=== PATIENT | male | born 1950 | race African-American/Black ===

== ENCOUNTER 2017-05-18 13:36 | Inpatient (IN) | payer OTHER, MEDICARE ==
[2017-05-18] VITALS (7 sets, daily range): BP systolic 63–127; BP diastolic 52–87; PULSE 83–110; RESP 16–20; TEMP 97.7–99.2; O2SAT 96–100
[~2017-05-18] VITALS: Ht 172.7 cm; Wt 82.3 kg
[2017-05-18] MEDS ORDERED: COUM4TAB PO (14:47)
[2017-05-18] MEDS ORDERED: UNKNOWN MEDS (14:47)
[2017-05-18 15:05] LABS: AUTOMATED NEUTROPHIL # 14.5 TH/MM3 (1.8-7.7); BASOPHIL # 0.3 TH/MM3 (0-0.2); EOSINOPHIL % 0.2 % (0.0-4.0); HEMATOCRIT 44.8 % (39.0-51.0); HEMOGLOBIN 15.1 GM/DL (13.0-17.0); LYMPH % 3.7 % (9.0-44.0); LYMPHOCYTE # 0.6 TH/MM3 (1.0-4.8); MEAN CELL VOLUME 79.1 FL (80.0-100.0); MEAN CORPUSCULAR HEMOGLOBIN 26.6 PG (27.0-34.0); MEAN CORPUSCULAR HGB CONC 33.6 % (32.0-36.0); MEAN PLATELET VOLUME 9.6 FL (7.0-11.0); MONO % 9.1 % (0.0-8.0); MONOCYTE # 1.6 TH/MM3 (0-0.9); PLATELET COUNT 239 TH/MM3 (150-450); RED BLOOD COUNT 5.67 MIL/MM3 (4.50-5.90); RED CELL DISTRIBUTION WIDTH 14.4 % (11.6-17.2)
[2017-05-18] MEDS ORDERED: SODIUM CHLOR 0.9% 1000 ML INJ 1,000 ML IV ONE (15:15)
[2017-05-18 15:17] LABS: CHLORIDE 97 MEQ/L (98-107); SODIUM (NA) 132 MEQ/L (136-145)
--- NOTE | 2017-05-18 15:21 | PD ---
HPI Chief Complaint: Dizziness Time Seen by Provider: 14:45 Travel History International Travel<30 days: No Contact w/Intl Traveler<30days: No Traveled to known affect area: No History of Present Illness HPI PATIENT WHILE AT [employer], GOT DIZZY SPELL AND FELT LIKE HE WAS GOING TO FALL/PASS OUT, WAS HELD BY STORE EMPLOYEE...SYMPTOMS FULLY RESOLVED ONCE HE SAT DOWN, HOWEVER RECURRED AGAIN WHEN HE GOT UP AND OUT OF CAR AGAIN. PER PATIENT HE HAS HAD NO APPETITE AND HASN'T EATEN OVER THE PAST 3 DAYS, NOT BECAUSE HE'S IN PAIN/ OR N/V/D/ABDPAIN/CP BUT JUST BECAUSE OF NO APPETITE PCP FROM [facility] PMHX: DM, HTN, HYPERCHOL, CVA X3 PRIOR, DEMENTIA, SEIZURE, THYROID AND PROSTATE CA, AORTIC VALVE REPLACEMENT ON COUMADIN PFSH Past Medical History Cancer: Yes (THYROID, PROSTATE) High Cholesterol: Yes Cerebrovascular Accident: Yes Dementia: Yes Diabetes: Yes Patient Takes Glucophage: No Hypertension: Yes Seizures: Yes Past Surgical History Cardiac Surgery: Yes (AORTIC VALVE REPLACEMENT) Social History Alcohol Use: No Tobacco Use: No Substance Use: No Allergies-Medications (Allergen,Severity, Reaction): Coded Allergies: codeine (Verified Allergy, Intermediate, RASH, 05/18/17) ketorolac (Verified Allergy, Intermediate, HAND SWELLING, 05/18/17) adhesive tape (Verified Allergy, Unknown, RASH, 05/18/17) latex (Verified Allergy, Unknown, RASH, 05/18/17) Reported Meds & Prescriptions Reported Meds & Active Scripts Active Reported Coumadin (Warfarin) 10 Mg Tab 8 Mg PO DAILY Aricept (Donepezil HCl) 10 Mg Tablet 10 Mg PO DAILY Namenda Xr (Memantine) 28 Mg Caper 28 Mg PO DAILY Gabapentin 100 Mg Cap 100 Mg PO BID Levetiracetam 500 Mg Tab 500 Mg PO QHS Levetiracetam 250 Mg Tab 250 Mg PO Q AM Lansoprazole 30 Mg Capdr 30 Mg PO DAILY [Benzopril] 10 Mg PO DAILY Unithroid (Levothyroxine Sodium) 125 Mcg Tab 125 Mcg PO DAILY Simvastatin 20 Mg Tab 20 Mg PO QHS Amlodipine (Amlodipine Besylate) 5 Mg Tab 5 Mg PO DAILY Flexeril (Cyclobenzaprine HCl) 10 Mg Tab 10 Mg PO TID Metformin (Metformin HCl) 1,000 Mg Tab 1,000 Mg PO BID With a meal Allopurinol 300 Mg Tab 300 Mg PO DAILY [Oxybutin] 5 Mg PO Q8HR [Unknown Meds] Review of Systems Except as stated in HPI: all other systems reviewed are Neg General / Constitutional: No: Fever Eyes: No: Visual changes HENT: Positive: Lightheadedness Cardiovascular: Positive: Syncope (NEARLY PASSED OUT WHILE STANDING UP) Respiratory: No: Shortness of Breath Gastrointestinal: No: Abdominal Pain Genitourinary: No: Dysuria Musculoskeletal: No: Pain Skin: No Rash Neurologic: No: Weakness Psychiatric: No: Depression Endocrine: No: Polydipsia Hematologic/Lymphatic: No: Easy Bruising Physical Exam Narrative GENERAL: SKIN: Warm and dry. HEAD: Atraumatic. Normocephalic. EYES: Pupils equal and round. No scleral icterus. No injection or drainage. ENT: No nasal bleeding or discharge. Mucous membranes pink and moist. NECK: Trachea midline. No JVD. CARDIOVASCULAR: Regular rhythm, TACHYCARDIC RATE RESPIRATORY: No accessory muscle use. Clear to auscultation. Breath sounds equal bilaterally. GASTROINTESTINAL: Abdomen soft, non-tender, nondistended. MUSCULOSKELETAL: Extremities without clubbing, cyanosis, or edema. No obvious deformities. NEUROLOGICAL: Awake and alert. No obvious cranial nerve deficits. Motor grossly within normal limits. Five out of 5 muscle strength in the arms and legs. Normal speech. PSYCHIATRIC: Appropriate mood and affect; insight and judgment normal. Data Data Last Documented VS Vital Signs Date Time Temp Pulse Resp B/P (MAP) Pulse Ox O2 Delivery O2 Flow Rate FiO2 05/18/17 16:37 98 20 115/77 (90) 98 05/18/17 13:50 99.2 Orders Orders Electrocardiogram (05/18/17 14:45) B-Type Natriuretic Peptide (05/18/17 14:45) Ckmb (Isoenzyme) Profile (05/18/17 14:45) Complete Blood Count With Diff (05/18/17 14:45) Comprehensive Metabolic Panel (05/18/17 14:45) Prothrombin Time / Inr (Pt) (05/18/17 14:45) Act Partial Throm Time (Ptt) (05/18/17 14:45) Troponin I (05/18/17 14:45) Chest, Single Ap (05/18/17 14:45) Ecg Monitoring (05/18/17 14:45) Bilateral Bp Monitoring (05/18/17 14:45) Iv Access Insert/Monitor (05/18/17 14:45) Oximetry (05/18/17 14:45) Oxygen Administration (05/18/17 14:45) Ct Brain W/O Iv Contrast(Rout) (05/18/17 14:45) Sodium Chlor 0.9% 1000 Ml Inj (Ns 1000 M (05/18/17 15:15) Orthostatic Vital Signs (05/18/17 15:09) CKMB (05/18/17 15:00) CKMB% (05/18/17 15:00) Admit To Inpatient (05/18/17 ) Vital Signs (Adult) Q4H (05/18/17 16:53) Activity Oob With Assistance (05/18/17 16:53) Intake + Output JARAD.QSHIFT (05/18/17 16:53) Diet Heart Healthy (05/18/17 Dinner) Sodium Chlor 0.9% 1000 Ml Inj (Ns 1000 M (05/18/17 16:53) Sodium Chloride 0.9% Flush (Ns Flush) (05/18/17 17:00) Sodium Chloride 0.9% Flush (Ns Flush) (05/18/17 21:00) Acetaminophen (Tylenol) (05/18/17 17:00) Basic Metabolic Panel (Bmp) (05/19/17 06:00) Complete Blood Count With Diff (05/19/17 06:00) Prothrombin Time / Inr (Pt) (05/19/17 06:00) Pt Request For Service (05/18/17 16:53) Naloxone Inj (Narcan Inj) (05/18/17 17:00) Docusate Sodium-Senna (Aviva-Colace) (05/18/17 21:00) Magnesium Hydroxide Liq (Milk Of Magnesi (05/18/17 17:00) Sennosides (Senokot) (05/18/17 17:00) Bisacodyl Supp (Dulcolax Supp) (05/18/17 17:00) Lactulose Liq (Lactulose Liq) (05/18/17 17:00) Inpatient Certification (05/18/17 ) Admit Order (Ed Use Only) (05/18/17 16:57) Labs Laboratory Tests Test 05/18/17 15:00 White Blood Count 17.0 TH/MM3 Red Blood Count 5.67 MIL/MM3 Hemoglobin 15.1 GM/DL Hematocrit 44.8 % Mean Corpuscular Volume 79.1 FL Mean Corpuscular Hemoglobin 26.6 PG Mean Corpuscular Hemoglobin Concent 33.6 % Red Cell Distribution Width 14.4 % Platelet Count 239 TH/MM3 Mean Platelet Volume 9.6 FL Neutrophils (%) (Auto) 85.0 % Lymphocytes (%) (Auto) 3.7 % Monocytes (%) (Auto) 9.1 % Eosinophils (%) (Auto) 0.2 % Basophils (%) (Auto) 2.0 % Neutrophils # (Auto) 14.5 TH/MM3 Lymphocytes # (Auto) 0.6 TH/MM3 Monocytes # (Auto) 1.6 TH/MM3 Eosinophils # (Auto) 0.0 TH/MM3 Basophils # (Auto) 0.3 TH/MM3 CBC Comment DIFF FINAL Differential Comment Prothrombin Time 73.3 SEC Prothromb Time International Ratio 6.1 RATIO Activated Partial Thromboplast Time 61.5 SEC Blood Urea Nitrogen 16 MG/DL Creatinine 1.90 MG/DL Random Glucose 131 MG/DL Total Protein 7.6 GM/DL Albumin 3.3 GM/DL Calcium Level 8.3 MG/DL Alkaline Phosphatase 86 U/L Aspartate Amino Transf (AST/SGOT) 17 U/L Alanine Aminotransferase (ALT/SGPT) 21 U/L Total Bilirubin 0.8 MG/DL Sodium Level 132 MEQ/L Potassium Level 4.6 MEQ/L Chloride Level 97 MEQ/L Carbon Dioxide Level 24.7 MEQ/L Anion Gap 10 MEQ/L Estimat Glomerular Filtration Rate 43 ML/MIN Total Creatine Kinase 184 U/L Creatine Kinase MB 0.5 NG/ML Troponin I LESS THAN 0.02 NG/ML B-Type Natriuretic Peptide 35 PG/ML MDM Medical Decision Making Medical Screen Exam Complete: Yes Emergency Medical Condition: Yes Medical Record Reviewed: Yes Interpretation(s) SINUS TACH 105, P MITRALE, NORMAL INTERVALS, NO STEMI Differential Diagnosis ICH V ORTHOSTATIC HYPOTENSION V ANEMIA V DEHYDRATION V ATYPICAL STEMI V NONSTEMI Critical Care Narrative CRITICAL CARE NOTE: With evaluation of the patient, labs, EKG, receipt of radiologic studies, administration of medications, reevaluation the patient and discussion of the patient with the admitting physicians, the total critical care time was [30] minutes. Time to perform other separately billable procedures was not included in the critical care time. Diagnosis Primary Impression: NEAR SYNCOPE Additional Impressions: COUMADIN HYPERCOAGULOPATHY LEUKOCYTOSIS NOS Orthostatic hypotension Scripts Ugxcvuze-Ojwdxafogzficil-Yhkzqrtnc Liq (Magic Mouthwash Adult Liq) 120 Ml Susp 5 ML SWISH-SWAL QID for mouth pain for 30 Days, ML Prov: Kamla Del Valle MD 05/20/17 Js Eden MD May 18, 2017 15:21
[2017-05-18 15:22] LABS: ALBUMIN 3.3 GM/DL (3.4-5.0); BICARBONATE 24.7 MEQ/L (21.0-32.0); BLOOD UREA NITROGEN 16 MG/DL (7-18); CALCIUM 8.3 MG/DL (8.5-10.1); GLUCOSE,RANDOM 131 MG/DL (74-106)
[2017-05-18 15:25] LABS: ALT (GPT) 21 U/L (12-78); AST (GOT) 17 U/L (15-37); GLOMERULAR FILTRATION RATE 43 ML/MIN (>89)
[2017-05-18 15:27] LABS: TOTAL BILIRUBIN ADULT 0.8 MG/DL (0.2-1.0); TOTAL PROTEIN 7.6 GM/DL (6.4-8.2)
[2017-05-18 15:28] LABS: ALKALINE PHOSPHATASE 86 U/L (45-117)
[2017-05-18 15:30] LABS: TROPONIN I LESS THAN 0.02 NG/ML (0.02-0.05)
--- NOTE | 2017-05-18 15:35 | RADRPT ---
EXAM DATE/TIME: 05/18/2017 15:21 [facility] COMPARISON: No previous studies available for comparison. INDICATIONS : Dizziness. RADIATION DOSE: 65.81 CTDIvol (mGy) MEDICAL HISTORY : Cerebrovascular disease. Cardiovascular disease Seizures.Dementia. Diabetes. Hypertension. Thyroid cancer. Prostate cancer. SURGICAL HISTORY : Aortic valve replacement. ENCOUNTER: Initial ACUITY: 1 day PAIN SCALE: 0/10 LOCATION: cranial TECHNIQUE: Multiple contiguous axial images were obtained of the head. Using automated exposure control and adj ustment of the mA and/or kV according to patient size, radiation dose was kept as low as reasonably a chievable to obtain optimal diagnostic quality images. DICOM format image data is available electro nically for review and comparison. FINDINGS: CEREBRUM: The ventricles are normal for age. No evidence of midline shift, mass lesion, hemorrhage or acute in farction. No extra-axial fluid collections are seen. Encephalomalacia is noted within the left front oparietal region and left basal ganglia. Focal ex vacuo dilatation of the frontal horn of the left la teral ventricle is noted. POSTERIOR FOSSA: The cerebellum and brainstem are intact. The 4th ventricle is midline. The cerebellopontine angle i s unremarkable. EXTRACRANIAL: The visualized portion of the orbits is intact. SKULL: The calvaria is intact. No evidence of skull fracture. CONCLUSION: 1. Left frontoparietal and left basal ganglia encephalomalacia with focal ex vacuo dilatation of the frontal horn of the left lateral ventricle. 2. No acute infarct, acute hemorrhage, mass effect or extra-axial fluid collections. Haim Kumari MD on May 18, 2017 at 15:30 Board Certified Radiologist. This report was verified electronically.
[2017-05-18 15:49] LABS: PROTHROMBIN TIME - PATIENT 73.3 SEC (9.8-11.6)
[2017-05-18 15:52] LABS: INTERNATIONAL NORMALIZED RATIO 6.1 RATIO
--- NOTE | 2017-05-18 15:58 | RADRPT ---
EXAM DATE/TIME: 05/18/2017 15:31 [facility] COMPARISON: No previous studies available for comparison. INDICATIONS : Chest discomfort, dizziness starting today MEDICAL HISTORY : Cerebrovascular disease. Cardiovascular disease Seizures.Dementia. Diabetes. Hypertension. Thyroid ca ncer. Prostate cancer SURGICAL HISTORY : Aortic valve replacement. ENCOUNTER: Initial ACUITY: 1 day PAIN SCORE: 0/10 LOCATION: Bilateral chest FINDINGS: A single view of the chest demonstrates the lungs to be symmetrically aerated without evidence of mas s, infiltrate or effusion. The cardiomediastinal contours are unremarkable. Degenerative changes and mild scoliosis of the thoracic spine are noted. Median sternotomy wires are noted status post cardia c surgery. CONCLUSION: No acute disease. Haim Kumari MD on May 18, 2017 at 15:55 Board Certified Radiologist. This report was verified electronically.
[2017-05-18] MEDS: SODIUM CHLOR 0.9% 1000 ML INJ 1,000 ML IV SCH (16:53)
[2017-05-18] MEDS ORDERED: ACETAMINOPHEN 325 MG TAB PO PRN (17:00)
[2017-05-18] MEDS ORDERED: NALOXONE HCL 0.4 MG/ML AMP IV PUSH PRN (17:00)
[2017-05-18] MEDS ORDERED: SENNOSIDES 8.6 MG TAB PO PRN (17:00)
[2017-05-18] MEDS ORDERED: SODIUM CHLORIDE 0.9% FLUSH 10 ML FLUSH IV FLUSH PRN (17:00)
[2017-05-18] MEDS ORDERED: MAGNESIUM HYDROXIDE SUSP 30 ML CUP PO PRN (17:00)
[2017-05-18] MEDS ORDERED: BISACODYL 10 MG SUPP RECTAL PRN (17:00)
[2017-05-18] MEDS ORDERED: LACTULOSE SYRUP 20 GM/30 ML CUP PO PRN (17:00)
--- NOTE | 2017-05-18 18:16 | HHI.HP ---
[facility] Non-Staff Admission Diagnosis NEARSYNCOPE,ORTHOSTATIC HYPOTENSION,COUMADIN HYPERCOAGULOPATHY Diagnoses: Travel History International Travel<30 Days: No Contact w/Intl Traveler <30 Da: No Traveled to Known Affected Are: No History of Present Illness This is a pleasant 66-year-old male with past medical history of diabetes, hypertension, aortic valve replacement who is here visiting from [place]. History obtained from the patient and his at bedside. He presents for dizziness and near syncopal event. The patient states that he has sensitive teeth which have been bothering him. He used an igao-afj-jgpnusn topical anesthetic and had a reaction to that that causes lips to swell. Because of that he has been eating and drinking very little. Today he went to go to [employer] to go fishing. As he was standing at the counter he started to feel dizzy and lightheaded. This sales operations helped ease him to a chair. The patient upon standing again felt dizzy and lightheaded. He had no chest pain or palpitations. No syncopal event. The patient then came to the hospital. Symptoms moderate. No alleviating factors. No nausea vomiting or diarrhea. Lip swelling has resolved and he is able to drink fluids. Patient's orthostatic blood pressure signs were positive in the emergency department with his blood pressure dropping to 63/52 while standing. He also had mild acute kidney injury and his INR was elevated at 6.1. Patient does take Coumadin for the aortic valve. Review of Systems Constitutional: DENIES: Fever, Chills Eyes: DENIES: Blurred vision, Vision loss Ears, nose, mouth, throat: DENIES: Oral lesions, Throat pain Respiratory: DENIES: Cough, Shortness of breath Cardiovascular: DENIES: Chest pain, Palpitations, Syncope Gastrointestinal: DENIES: Abdominal pain, Diarrhea, Nausea, Vomiting Musculoskeletal: DENIES: Joint Swelling, Back pain Integumentary: DENIES: Rash Hematologic/lymphatic: DENIES: Lymphadenopathy Neurologic: DENIES: Abnormal gait, Headache, Localized weakness Psychiatric: DENIES: Anxiety, Confusion Past Family Social History Past Medical History Hypertension Type 2 diabetes History of stroke 3 with no residual deficits Mild dementia History of seizure Hypothyroidism Aortic valve replacement History of prostate cancer status post prostatectomy History of thyroid cancer status post thyroidectomy and radiation Reported Medications Patient's does not have his medications however she knows he takes metformin and Toprol. I have asked the nurse to call his pharmacy in his home town to get his list of medications. Allergies: Coded Allergies: codeine (Verified Allergy, Intermediate, RASH, 05/18/17) ketorolac (Verified Allergy, Intermediate, HAND SWELLING, 05/18/17) adhesive tape (Verified Allergy, Unknown, RASH, 05/18/17) latex (Verified Allergy, Unknown, RASH, 05/18/17) Family History Negative for stroke or heart issues. Social History He did smoke about 20 years but quit 30 years ago. No alcohol use. He is . Physical Exam Vital Signs Vital Signs Date Time Temp Pulse Resp B/P (MAP) Pulse Ox O2 Delivery O2 Flow Rate FiO2 05/18/17 17:53 98.9 86 18 113/87 (96) 96 05/18/17 17:48 05/18/17 16:37 98 20 115/77 (90) 98 05/18/17 15:20 105 20 95/71 (79) 103 20 105/75 (85) 113 20 63/52 (56) 05/18/17 15:00 97 05/18/17 15:00 103 20 110/77 (88) 100 103/75 (84) 05/18/17 13:50 99.2 110 16 104/68 (80) 99 Physical Exam GENERAL: This is a well-nourished, well-developed male patient , in no apparent distress. SKIN: No rashes, ecchymoses or lesions. HEAD: Atraumatic. Normocephalic. EYES: Pupils equal round and reactive. Extraocular motions intact. No scleral icterus. No injection or drainage. ENT: Throat without erythema, tonsillar hypertrophy or exudate. Uvula midline. Airway patent. No lip swelling. NECK: Trachea midline. No JVD or lymphadenopathy. Supple, nontender, no meningeal signs. CARDIOVASCULAR: Regular rate and rhythm 2/6 murmur loudest at left sternal border. RESPIRATORY: Clear to auscultation. Breath sounds equal bilaterally. No wheezes , rales, or rhonchi. GASTROINTESTINAL: Abdomen soft, non-tender, nondistended. MUSCULOSKELETAL: Extremities without clubbing, cyanosis, or edema. No joint tenderness, effusion, or edema noted. NEUROLOGICAL: Awake and alert. Motor and sensory grossly within normal limits. 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 Normal speech. Laboratory Laboratory Tests Test 05/18/17 15:00 White Blood Count 17.0 Red Blood Count 5.67 Hemoglobin 15.1 Hematocrit 44.8 Mean Corpuscular Volume 79.1 Mean Corpuscular Hemoglobin 26.6 Mean Corpuscular Hemoglobin Concent 33.6 Red Cell Distribution Width 14.4 Platelet Count 239 Mean Platelet Volume 9.6 Neutrophils (%) (Auto) 85.0 Lymphocytes (%) (Auto) 3.7 Monocytes (%) (Auto) 9.1 Eosinophils (%) (Auto) 0.2 Basophils (%) (Auto) 2.0 Neutrophils # (Auto) 14.5 Lymphocytes # (Auto) 0.6 Monocytes # (Auto) 1.6 Eosinophils # (Auto) 0.0 Basophils # (Auto) 0.3 CBC Comment DIFF FINAL Differential Comment Prothrombin Time 73.3 Prothromb Time International Ratio 6.1 Activated Partial Thromboplast Time 61.5 Blood Urea Nitrogen 16 Creatinine 1.90 Random Glucose 131 Total Protein 7.6 Albumin 3.3 Calcium Level 8.3 Alkaline Phosphatase 86 Aspartate Amino Transf (AST/SGOT) 17 Alanine Aminotransferase (ALT/SGPT) 21 Total Bilirubin 0.8 Sodium Level 132 Potassium Level 4.6 Chloride Level 97 Carbon Dioxide Level 24.7 Anion Gap 10 Estimat Glomerular Filtration Rate 43 Total Creatine Kinase 184 Creatine Kinase MB 0.5 Troponin I LESS THAN 0.02 B-Type Natriuretic Peptide 35 Result Diagram: 05/18/17 1500 05/18/17 1500 Imaging Last Impressions Head CT 05/18/171444 Signed Impressions: Service Date/Time: Thursday, May 18, 2017 15:21 - CONCLUSION: 1. Left frontoparietal and left basal ganglia encephalomalacia with focal ex vacuo dilatation of the frontal horn of the left lateral ventricle. 2. No acute infarct, acute hemorrhage, mass effect or extra-axial fluid collections. Haim Kumari MD Chest X-Ray 05/18/171444 Signed Impressions: Service Date/Time: Thursday, May 18, 2017 15:31 - CONCLUSION: No acute disease. Haim Kumari MD Caprini VTE Risk Assessment Caprini VTE Risk Assessment: Mod/High Risk (score >= 2) Caprini Risk Assessment Model Point Value = 1 Point Value = 2 Point Value = 3 Point Value = 5 Age 41-60 Minor surgery BMI > 25 kg/m2 Swollen legs Varicose veins or History of unexplained or recurrent spontaneous Oral contraceptives or hormone replacement Sepsis (< 1 month) Serious lung disease, including pneumonia (< 1 month) Abnormal pulmonary function Acute myocardial infarction Congestive heart failure (< 1 month) History of inflammatory bowel disease Medical patient at bed rest Age 61-74 Arthroscopic surgery Major open surgery (> 45 min) Laparoscopic surgery (> 45 min) Malignancy Confined to bed (> 72 hours) Immobilizing plaster cast Central venous access Age >= 75 History of VTE Family history of VTE Factor V Leiden Prothrombin [id number] Lupus anticoagulant Anticardiolipin antibodies Elevated serum homocysteine Heparin-induced thrombocytopenia Other congenital or acquired thrombophilia Stroke (< 1 month) Elective arthroplasty Hip, pelvis, or leg fracture Acute spinal cord injury (< 1 month) Prophylaxis Regimen Total Risk Factor Score Risk Level Prophylaxis Regimen 0-1 Low Early ambulation 2 Moderate Order ONE of the following: *Sequential Compression Device (SCD) *Heparin 5000 units SQ BID 3-4 Higher Order ONE of the following medications: *Heparin 5000 units SQ TID *Enoxaparin/Lovenox 40 mg SQ daily (WT < 150 kg, CrCl > 30 mL/min) *Enoxaparin/Lovenox 30 mg SQ daily (WT < 150 kg, CrCl > 10-29 mL/min) *Enoxaparin/Lovenox 30 mg SQ BID (WT < 150 kg, CrCl > 30 mL/min) AND/OR *Sequential Compression Device (SCD) 5 or more Highest Order ONE of the following medications: *Heparin 5000 units SQ TID (Preferred with Epidurals) *Enoxaparin/Lovenox 40 mg SQ daily (WT < 150 kg, CrCl > 30 mL/min) *Enoxaparin/Lovenox 30 mg SQ daily (WT < 150 kg, CrCl > 10-29 mL/min) *Enoxaparin/Lovenox 30 mg SQ BID (WT < 150 kg, CrCl > 30 mL/min) AND *Sequential Compression Device (SCD) Assessment and Plan Problem List: (1) ANTHONY (acute kidney injury) ICD Code: N17.9 - Acute kidney failure, unspecified (2) Coumadin toxicity ICD Code: T45.511A - Poisoning by anticoagulants, accidental (unintentional), initial encounter (3) Orthostatic hypotension ICD Code: I95.1 - Orthostatic hypotension Status: Acute Assessment and Plan -Orthostatic hypotension due to dehydration with near syncopal event. Will give IV fluids, as check serial orthostatic vital signs. -Acute kidney injury secondary to dehydration. Continue IV fluids and check BMP in the morning. -Leukocytosis likely secondary to dehydration. Chest x-ray negative. Repeat CBC in the morning. -Aortic valve replacement on Coumadin and currently his INR is 6. Hold Coumadin. No signs of bleeding. Repeat INR in the morning. Will need to reconcile his home medications and the nurse is calling his pharmacy to obtain these. -Hypertension - hold medications due to the hypotension. -Type 2 diabetes - will place on sliding scale insulin for now. -History of stroke 3 with no residual deficits -Mild dementia -History of seizure -Hypothyroidism -DVT prophylaxis SCDs Kamla Del Valle MD May 18, 2017 18:16
[2017-05-18] MEDS ORDERED: CYCL1TAB29 PO (19:33)
[2017-05-18] MEDS ORDERED: LEVE500T8 PO (19:33)
[2017-05-18] MEDS ORDERED: OXYBUTIN PO (19:33)
[2017-05-18] MEDS ORDERED: GABA100C4 PO (19:33)
[2017-05-18] MEDS ORDERED: AMLO5TAB2 PO (19:33)
[2017-05-18] MEDS ORDERED: AMIT75TA2 PO (19:33)
[2017-05-18] MEDS ORDERED: [UNRECOGNIZED DRUG - CODE] PO (19:33)
[2017-05-18] MEDS ORDERED: SIMV20TA PO (19:33)
[2017-05-18] MEDS ORDERED: LEVE250T5 PO (19:33)
[2017-05-18] MEDS ORDERED: BENZOPRIL PO (19:33)
[2017-05-18] MEDS ORDERED: LANS30CA PO (19:33)
[2017-05-18] MEDS ORDERED: ALLO300T2 PO (19:33)
[2017-05-18] MEDS ORDERED: METF1000 PO (19:33)
[2017-05-18] MEDS ORDERED: MEMA28CA PO (19:33)
[2017-05-18] MEDS ORDERED: GLUCAGON 1 MG/ML VIAL OTHER PRN (19:45)
[2017-05-18] MEDS ORDERED: DEXTROSE 50% IN WATER 50 ML VIAL(D50) IV PUSH PRN (19:45)
[2017-05-18] MEDS ORDERED: COUM10TA PO (19:48)
[2017-05-18] MEDS ORDERED: ARIC10TA2 PO (19:48)
[2017-05-18] MEDS: PRAVASTATIN SOD 40 MG TAB PO SCH (20:24)
[2017-05-18] MEDS: DOCUSATE SODIUM 50 MG/SENNA 8.6 MG TAB PO SCH (20:25)
[2017-05-18] MEDS: SODIUM CHLORIDE 0.9% FLUSH 10 ML FLUSH IV FLUSH SCH (20:25)
[2017-05-18] MEDS: INSULIN ASPART SUPPLEMENTAL SCALE SQ SCH (20:25)
[2017-05-18] MEDS: levETIRAcetam 500 MG TAB PO SCH (20:29)
[2017-05-18] MEDS: OXYBUTYNIN CHLORIDE 5 MG TAB PO SCH (21:22)
[2017-05-18] MEDS ORDERED: OXYBUTIN PO SCH (22:00)
[2017-05-19] VITALS (9 sets, daily range): BP systolic 95–176; BP diastolic 76–94; PULSE 68–93; RESP 20; TEMP 98–100.4; O2SAT 96–99
[2017-05-19] MEDS: SODIUM CHLOR 0.9% 1000 ML INJ 1,000 ML IV SCH ×2 (02:53→11:56)
[2017-05-19] MEDS: OXYBUTYNIN CHLORIDE 5 MG TAB PO SCH ×3 (05:21→20:36)
[2017-05-19 07:01] LABS: AUTOMATED NEUTROPHIL # 8.2 TH/MM3 (1.8-7.7); BASOPHIL # 0.1 TH/MM3 (0-0.2); BASOPHIL % 0.5 % (0.0-2.0); EOSINOPHIL # 0.1 TH/MM3 (0-0.4); EOSINOPHIL % 0.9 % (0.0-4.0); HEMATOCRIT 39.5 % (39.0-51.0); LYMPH % 7.7 % (9.0-44.0); LYMPHOCYTE # 0.8 TH/MM3 (1.0-4.8); MEAN CELL VOLUME 80.1 FL (80.0-100.0); MEAN CORPUSCULAR HEMOGLOBIN 26.6 PG (27.0-34.0); MEAN CORPUSCULAR HGB CONC 33.2 % (32.0-36.0); MEAN PLATELET VOLUME 9.5 FL (7.0-11.0); MONO % 10.8 % (0.0-8.0); MONOCYTE # 1.1 TH/MM3 (0-0.9); NEUT % 80.1 % (16.0-70.0); PLATELET COUNT 183 TH/MM3 (150-450); PROTHROMBIN TIME - PATIENT 58.9 SEC (9.8-11.6); RED BLOOD COUNT 4.93 MIL/MM3 (4.50-5.90); RED CELL DISTRIBUTION WIDTH 14.2 % (11.6-17.2); WHITE BLOOD COUNT 10.3 TH/MM3 (4.0-11.0)
[2017-05-19 07:02] LABS: HEMOGLOBIN 13.1 GM/DL (13.0-17.0)
[2017-05-19 07:04] LABS: BICARBONATE 26.1 MEQ/L (21.0-32.0); CALCIUM 7.9 MG/DL (8.5-10.1)
[2017-05-19 07:08] LABS: CREATININE 1.2 MG/DL (0.60-1.30)
[2017-05-19] MEDS: INSULIN ASPART SUPPLEMENTAL SCALE SQ SCH ×4 (08:00→20:37)
[2017-05-19] MEDS: LEVOTHYROXINE SODIUM 125 MCG TAB PO SCH (08:01)
[2017-05-19] MEDS: levETIRAcetam 250 MG TAB PO SCH (08:01)
[2017-05-19] MEDS: ALLOPURINOL 300 MG TAB PO SCH (08:01)
[2017-05-19] MEDS: DOCUSATE SODIUM 50 MG/SENNA 8.6 MG TAB PO SCH ×2 (08:01→20:36)
[2017-05-19] MEDS: PANTOPRAZOLE SOD 40 MG DELAYED RELEASE TAB PO SCH (08:01)
[2017-05-19] MEDS: SODIUM CHLORIDE 0.9% FLUSH 10 ML FLUSH IV FLUSH SCH ×2 (08:03→20:31)
[2017-05-19] MEDS ORDERED: MEMANTINE 28 MG PO SCH (09:00)
--- NOTE | 2017-05-19 13:24 | HHI.PR ---
Subjective Remarks Patient having a lot of pain in his mouth and teeth. Still orthostatic however he was not dizzy upon standing. Ambulating well. Objective Vitals Vital Signs Date Time Temp Pulse Resp B/P (MAP) Pulse Ox O2 Delivery O2 Flow Rate FiO2 05/19/17 12:10 99.2 93 20 142/85 (104) 97 116/81 (93) 95/76 (82) 05/19/17 11:50 99.2 84 20 164/94 (117) 97 05/19/17 07:50 98.0 84 20 129/87 (101) 97 05/19/17 04:00 98.6 84 20 134/81 (98) 96 05/18/17 23:57 97.7 83 20 122/80 (94) 97 05/18/17 20:00 98.5 91 20 127/81 (96) 97 05/18/17 20:00 90 05/18/17 17:53 98.9 86 18 113/87 (96) 96 05/18/17 17:48 05/18/17 16:37 98 20 115/77 (90) 98 05/18/17 15:20 105 20 95/71 (79) 103 20 105/75 (85) 113 20 63/52 (56) 05/18/17 15:00 97 05/18/17 15:00 103 20 110/77 (88) 100 103/75 (84) 05/18/17 13:50 99.2 110 16 104/68 (80) 99 I/O 05/18/17 05/18/17 05/18/17 05/19/17 05/19/17 05/19/17 07:00 15:00 23:00 07:00 15:00 23:00 Intake Total 200 ml 1720 ml 200 ml Balance 200 ml 1720 ml 200 ml Intake Oral 200 ml 720 ml 200 ml IV Total 1000 ml # Voids 3 Result Diagram: 05/19/1761405/19/17614 Objective Remarks GENERAL: Well-nourished, well-developed pleasant male patient. SKIN: Warm and dry. HEAD: Normocephalic. EYES: No scleral icterus. No injection or drainage. Oropharynx: Patent, no tongue or mucosal lesions. NECK: Supple, trachea midline. No JVD or lymphadenopathy. CARDIOVASCULAR: Regular rate and rhythm without murmurs, gallops, or rubs. RESPIRATORY: Breath sounds equal bilaterally. No accessory muscle use. GASTROINTESTINAL: Abdomen soft, non-tender, nondistended. EXTREMITIES: No cyanosis, or edema. NEUROLOGICAL: Awake, alert, and oriented x 3. Non-focal. A/P Problem List: (1) ANTHONY (acute kidney injury) ICD Code: N17.9 - Acute kidney failure, unspecified (2) Coumadin toxicity ICD Code: T45.511A - Poisoning by anticoagulants, accidental (unintentional), initial encounter (3) Orthostatic hypotension ICD Code: I95.1 - Orthostatic hypotension Status: Acute Assessment and Plan -Orthostatic hypotension due to dehydration with near syncopal event. He is still orthostatic this morning although he is not symptomatic. Continue IV fluids and serial orthostatic vital signs. -Acute kidney injury secondary to dehydration. Resolved after IV fluids. -Leukocytosis likely secondary to dehydration. Chest x-ray negative. Repeat CBC in the morning. -Aortic valve replacement on Coumadin and INR was 6, now trended down to 5. Continue to hold Coumadin. No signs of bleeding. Repeat INR in the morning. -Mouth pain - no oral lesions. Patient has history of sensitive teeth. We'll start Magic mouthwash. -Hypertension - hold medications due to the hypotension. -Type 2 diabetes -Accu-Cheks show good control. Continue sliding scale insulin for now. -History of stroke 3 with no residual deficits - continue statin.*Aspirin. -Mild dementia - Namenda and Aricept for presumed. -History of seizure - continue Keppra. -Hypothyroidism - continue Synthroid. -DVT prophylaxis ESPERANZAs Kamla Del Valle MD May 19, 2017 13:24
[2017-05-19] MEDS: NYSTAT/DIPHENHY/LIDO MOUTHWASH (Adult) 120ML SWISH-SWAL SCH ×3 (13:30→20:37)
[2017-05-19] MEDS: ACETAMINOPHEN/HYDROcodone 325 MG/5 MG TAB PO PRN (16:09)
[2017-05-19] MEDS: GABAPENTIN 100 MG CAP PO SCH (20:36)
[2017-05-19] MEDS: PRAVASTATIN SOD 40 MG TAB PO SCH (20:36)
[2017-05-19] MEDS: levETIRAcetam 500 MG TAB PO SCH (20:36)
[2017-05-20] VITALS: BP 153/94; PULSE 84; RESP 20; TEMP 99; O2SAT 97
[2017-05-20] MEDS: ACETAMINOPHEN/HYDROcodone 325 MG/5 MG TAB PO PRN (01:32)
[2017-05-20] MEDS: SODIUM CHLOR 0.9% 1000 ML INJ 1,000 ML IV SCH ×2 (01:35→08:09)
[2017-05-20 04:00] VITALS: BP 117/76; PULSE 80; RESP 20; TEMP 97.4; O2SAT 97
[2017-05-20] MEDS: OXYBUTYNIN CHLORIDE 5 MG TAB PO SCH (05:49)
[2017-05-20 07:24] LABS: INTERNATIONAL NORMALIZED RATIO 2.3 RATIO; PROTHROMBIN TIME - PATIENT 26.8 SEC (9.8-11.6)
[2017-05-20 07:50] VITALS: BP 172/90; PULSE 71; RESP 20; TEMP 97.6; O2SAT 99
[2017-05-20] MEDS: INSULIN ASPART SUPPLEMENTAL SCALE SQ SCH (08:00)
[2017-05-20] MEDS: ALLOPURINOL 300 MG TAB PO SCH (08:13)
[2017-05-20] MEDS: levETIRAcetam 250 MG TAB PO SCH (08:13)
[2017-05-20] MEDS: DOCUSATE SODIUM 50 MG/SENNA 8.6 MG TAB PO SCH (08:13)
[2017-05-20] MEDS: PANTOPRAZOLE SOD 40 MG DELAYED RELEASE TAB PO SCH (08:14)
[2017-05-20] MEDS: SODIUM CHLORIDE 0.9% FLUSH 10 ML FLUSH IV FLUSH SCH (08:14)
[2017-05-20] MEDS: LEVOTHYROXINE SODIUM 125 MCG TAB PO SCH (08:14)
[2017-05-20] MEDS: NYSTAT/DIPHENHY/LIDO MOUTHWASH (Adult) 120ML SWISH-SWAL SCH (08:22)
[2017-05-20] MEDS: GABAPENTIN 100 MG CAP PO SCH (08:22)
--- NOTE | 2017-05-20 08:49 | EKG ---
Date Performed: 05/18/2017 Time Performed: 15:13:38 PTAGE: 66 years EKG: SINUS TACHYCARDIA WITH FIRST DEGREE AV BLOCK POSSIBLE LEFT ATRIAL ENLARGEMENT SEPTAL MYOCAR DIAL INFARCTION ABNORMAL ECG NO PREVIOUS TRACING DOCTOR: Rocky Mosquera Interpretating Date/Time 05/20/2017 08:45:23
[2017-05-20] MEDS ORDERED: DONEPEZIL HCL 5 MG TAB PO SCH (09:00)
[2017-05-20 11:50] VITALS: BP 150/83; PULSE 78; RESP 20; TEMP 98.6; O2SAT 100
[2017-05-20] MEDS ORDERED: MAGICADU2 SWISH-SWAL (11:55)
--- NOTE | 2017-05-20 11:59 | HHI.PR ---
Subjective Remarks Patient eating and drinking well. He states the Magic mouthwashes really helped his dental pain. Patient has been ambulating about his room with no dizziness. Patient like to go home. Blood pressure elevated this morning. Objective Vitals Vital Signs Date Time Temp Pulse Resp B/P (MAP) Pulse Ox O2 Delivery O2 Flow Rate FiO2 05/20/17 07:50 97.6 71 20 172/90 (117) 99 05/20/17 04:00 97.4 80 20 117/76 (90) 97 05/20/17 00:00 99.0 84 20 153/94 (113) 97 05/19/17 23:00 88 05/19/17 20:00 99.8 88 20 170/94 (119) 99 05/19/17 16:57 98.0 05/19/17 16:30 68 05/19/17 15:50 100.4 93 20 176/94 (121) 98 05/19/17 12:10 99.2 93 20 142/85 (104) 97 116/81 (93) 95/76 (82) I/O 05/19/17 05/19/17 05/19/17 05/20/17 05/20/17 05/20/17 07:00 15:00 23:00 07:00 15:00 23:00 Intake Total 1720 ml 200 ml 355 ml 1480 ml Balance 1720 ml 200 ml 355 ml 1480 ml Intake Oral 720 ml 200 ml 355 ml 480 ml IV Total 1000 ml 1000 ml # Voids 3 8 4 # Bowel Movements 1 Result Diagram: 05/19/1715 05/19/17 0615 Objective Remarks GENERAL: Well-nourished, well-developed pleasant male patient. SKIN: Warm and dry. HEAD: Normocephalic. EYES: No scleral icterus. No injection or drainage. Oropharynx: Patent, no tongue or mucosal lesions. NECK: Supple, trachea midline. No JVD or lymphadenopathy. CARDIOVASCULAR: Regular rate and rhythm without murmurs, gallops, or rubs. RESPIRATORY: Breath sounds equal bilaterally. No accessory muscle use. GASTROINTESTINAL: Abdomen soft, non-tender, nondistended. EXTREMITIES: No cyanosis, or edema. NEUROLOGICAL: Awake, alert, and oriented x 3. Non-focal. A/P Problem List: (1) ANTHONY (acute kidney injury) ICD Code: N17.9 - Acute kidney failure, unspecified (2) Coumadin toxicity ICD Code: T45.511A - Poisoning by anticoagulants, accidental (unintentional), initial encounter (3) Orthostatic hypotension ICD Code: I95.1 - Orthostatic hypotension Status: Acute Assessment and Plan -Orthostatic hypotension due to dehydration with near syncopal event. Improved he is now hypertensive. DC IV fluids. Resume home BP meds. -Acute kidney injury secondary to dehydration. Resolved after IV fluids. -Leukocytosis likely secondary to dehydration. Resolved after hydration. Chest x-ray negative. -Aortic valve replacement on Coumadin and INR was 6, now trended down to 2.5. Resume Coumadin. -Mouth pain - no oral lesions. Patient has history of sensitive teeth. Continue Magic mouthwash. -Hypertension -resume medications. -Type 2 diabetes -Accu-Cheks show good control. Continue sliding scale insulin for now. -History of stroke 3 with no residual deficits - continue statin. Aspirin. -Mild dementia - Namenda and Aricept for presumed. -History of seizure - continue Keppra. -Hypothyroidism - continue Synthroid. -DVT prophylaxis SCDs Discharge home today. Prescription for Magic mouthwash prescribed. Push by mouth fluid intake. Close monitoring of PT/INR by primary care physician. Discussed with patient and his at bedside. Kamla Del Valle MD May 20, 2017 11:59
== END 2017-05-20 13:48 | disposition home or self-care (01) | DRG 312 ==
LOC: PHED 13:36 → PHEDA 16:58 → PH3A 17:30
PROVIDERS: ADMIT Family Medicine; ATTEND Family Medicine
DX: I95.1 Orthostatic hypotension (principal); N17.9 Acute kidney failure, unspecified; R56.9 Unspecified convulsions; F03.90 Unspecified dementia, unspecified severity, without behavioral disturbance, psychotic disturbance, mood disturbance, and anxiety; E11.9 Type 2 diabetes mellitus without complications; I10 Essential (primary) hypertension; E89.0 Postprocedural hypothyroidism; E86.0 Dehydration; K08.89 Other specified disorders of teeth and supporting structures; R79.1 Abnormal coagulation profile; Z86.73 Personal history of transient ischemic attack (TIA), and cerebral infarction without residual deficits; Z95.2 Presence of prosthetic heart valve; Z79.01 Long term (current) use of anticoagulants; Z85.850 Personal history of malignant neoplasm of thyroid; Z85.46 Personal history of malignant neoplasm of prostate
CPT/HCPCS: 70450; 71010; 80048; 80053; 82550; 82552; 82948; 83880; 84484; 85025; 85610; 85730; 93005; 96360; J1815; J7030